=== PATIENT | female | born 1945 | race Caucasian/White ===

== ENCOUNTER 2017-06-15 10:02 | Emergency (ER) | payer MEDICARE, MEDICAID ==
[~2017-06-15] VITALS: Ht 157.5 cm; Wt 45.0 kg
[~2017-06-15 10:02] MED LIST: AMAN100C16 PO; BENZ2TAB7 PO; CALC500T62 PO; DEPAK2 PO; KEPP500 PO; LETR2.5T3 PO; LORA0.5T2 PO; MEMA10TA11 PO; PRAM0.258 PO; PRAM0.5T11 PO; RISP2 PO; RISP2TAB22 PO; RISP3TAB13 PO; SERT-112 PO; SIMV20TA6 PO; TRAZ-129 PO
[2017-06-15] MEDS ORDERED: LORAZEPAM 2MG/ML CPJ IM ONE ×2 (11:15)
[2017-06-15] MEDS ORDERED: TETANUS, DIPHTHERIA, PERTUSSIS VAC/PF 0.5ML (>7YR OLD) IM ONE (11:15)
[2017-06-15 15:39] VITALS: BP 129/71
== END 2017-06-15 15:42 | disposition home or self-care (01) ==
LOC: ER 10:57
DX: S01.01XA Laceration without foreign body of scalp, initial encounter (principal); E11.9 Type 2 diabetes mellitus without complications; F20.9 Schizophrenia, unspecified; W05.0XXA Fall from non-moving wheelchair, initial encounter; Y93.89 Activity, other specified; Y92.89 Other specified places as the place of occurrence of the external cause; Y99.8 Other external cause status
CPT/HCPCS: 12002; 70450; 90471; 90715; 99284